=== PATIENT | female | born 2000 | race Caucasian/White ===

== ENCOUNTER 2021-01-28 12:56 | Emergency (ER) | payer MEDICAID ==
[2021-01-28] MEDS ORDERED: Ketorolac Tromethamine 30 MG/ML VIAL ONE (14:07)
== END 2021-01-28 14:10 | disposition home or self-care (01) ==
LOC: ERS 12:56
DX: S83.92XA Sprain of unspecified site of left knee, initial encounter (principal); F17.210 Nicotine dependence, cigarettes, uncomplicated; X50.0XXA Overexertion from strenuous movement or load, initial encounter
CPT/HCPCS: 96372; J1885

== ENCOUNTER 2021-02-08 19:43 | Emergency (ER) | payer MEDICAID | END 2021-02-08 21:09 | disposition home or self-care (01) | LOC: ERS 19:43 | DX: Z02.79 Encounter for issue of other medical certificate (principal); M25.571 Pain in right ankle and joints of right foot; R60.0 Localized edema; F17.210 Nicotine dependence, cigarettes, uncomplicated | CPT/HCPCS: 99283 ==